=== PATIENT | female | born 1965 | race Caucasian/White ===

== ENCOUNTER 2018-11-02 11:36 | Emergency (ER) | payer MEDICAID, OTHER ==
[2018-11-02 11:36] VITALS: BMI 29.1
[2018-11-02 11:54] VITALS: TEMP 98.7; O2SAT 95
--- NOTE | 2018-11-02 13:09 | C.PDOC ---
History Of Present Illness 52 year old female presents to the emergency department with complaints of left knee pain for the last month. Patient states that the pain is worse with walking up steps. Patient denies any fall or trauma, redness, swelling, weakness, numbness, and any other physical complaints. Time Seen by Provider: 11/02/18 11:55 Chief Complaint (Nursing): Lower Extremity Problem/Injury History Per: Patient History/Exam Limitations: no limitations Onset/Duration Of Symptoms: Other (1 month) Current Symptoms Are (Timing): Still Present - Knee Description Of Injury: denies: Fell Past Medical History Reviewed: Historical Data, Nursing Documentation, Vital Signs Vital Signs: Last Vital Signs Temp 98.7 F 11/02/18 11:44 Pulse 78 11/02/18 11:44 Resp 18 11/02/18 11:44 BP 128/88 11/02/18 12:24 Pulse Ox 95 11/02/18 11:44 Primary Care Provider: FAMILY PROVIDER,NO - Medical History PMH: Anemia, HTN Denies: Depression, Chronic Kidney Disease Surgical History: No Surg Hx - [facility] Procedures APPLICATION OF SPLINT (12/04/03) ARTIF RUPT MEMBRANES NEC (11/18/99) INJECT ANTIBIOTIC (07/28/04) INJECT/INFUSE NEC (11/01/11) LOW CERVICAL (05/26/04) MAGNETIC RESONANCE IMAGING OF BRAIN AND BRAIN STEM (06/13/05) OPS ASSISTING DELIV NEC (05/26/04) TETANUS TOXOID ADMINIST (06/10/14) VENOUS PUNCTURE NEC (11/01/13) Family History: States: No Known Family Hx - Social History Hx Tobacco Use: No Hx Alcohol Use: No Hx Substance Use: No - Immunization History Hx Tetanus Toxoid Vaccination: No Hx Influenza Vaccination: No Hx Pneumococcal Vaccination: No Review Of Systems Except As Marked, All Systems Reviewed And Found Negative. Constitutional: Negative for: Fever, Chills, Weakness Cardiovascular: Negative for: Chest Pain Respiratory: Negative for: Cough, Shortness of Breath Gastrointestinal: Negative for: Nausea, Vomiting, Abdominal Pain, Diarrhea Musculoskeletal: Positive for: Leg Pain (left knee) Neurological: Negative for: Weakness, Numbness Physical Exam - Physical Exam Appears: Non-toxic, No Acute Distress Skin: Normal Color, Warm, Dry, No Other (erythema) Head: Atraumatic, Normacephalic Neck: Supple Chest: Symmetrical Extremity: Normal ROM (Full ROM at the left knee), Tenderness (tenderness to palpation at the lateral aspect of the left knee), No Pedal Edema, Capillary Refill <2 Sec, No Swelling, No Other (NO joint laxity) Pulses: Left Dorsalis Pedis: Normal, Right Dorsalis Pedis: Normal Neurological/Psych: Oriented x3, Normal Speech, Normal Cognition, Normal Motor, Normal Sensation ED Course And Treatment O2 Sat by Pulse Oximetry: 95 (RA) Pulse Ox Interpretation: Normal Medical Decision Making Medical Decision Making: Plan: XR Left Knee Disposition Counseled Patient/Family Regarding: Diagnosis, Need For Followup, Rx Given - Disposition Referrals: Pauline Mims MD [Non-Staff] - Disposition: HOME/ ROUTINE Disposition Time: 14:12 Condition: GOOD Prescriptions: Ibuprofen [Motrin Tab] 800 mg PO TID PRN #30 tab PRN Reason: Pain, Moderate (4-7) Instructions: Osteoarthritis (DC) Forms: [facility] ([place]), General Discharge Instructions - POA Present On Arrival: None - Clinical Impression Clinical Impression: Osteoarthritis - Scribe Statement The provider has reviewed the documentation as recorded by the Scribe (Bert Vallejo) Provider Attestation: All medical record entries made by the Scribe were at my direction and personally dictated by me. I have reviewed the chart and agree that the record accurately reflects my personal performance of the history, physical exam, medical decision making, and the department course for this patient. I have also personally directed, reviewed, and agree with the discharge instructions and disposition.
--- NOTE | 2018-11-02 13:27 | RAD ---
Date of service: 11/02/2018 PROCEDURE: Left Knee Radiographs. HISTORY: Pain. COMPARISON: None. TECHNIQUE: 3 views obtained. FINDINGS: BONES: Bone alignment and mineralization are normal. There is no acute displaced fracture or bone destruction. JOINTS: There is mild tricompartmental degenerative osteoarthrosis with reduced joint spaces, marginal osteophytes and tibial spiking, worse in the medial compartment. JOINT EFFUSION: There is a small suprapatellar joint effusion. OTHER FINDINGS: None. IMPRESSION: No acute fracture or dislocation. Mild tricompartmental degenerative osteoarthrosis, worse in the medial compartment.
[2018-11-02 14:36] VITALS: BP 130/68; PULSE 70; RESP 20
== END 2018-11-02 14:35 | disposition home or self-care (01) ==
LOC: C.ER 11:36
DX: M17.12 Unilateral primary osteoarthritis, left knee (principal)